=== PATIENT | female | born 1955 | race Caucasian/White ===

== ENCOUNTER 2017-01-29 12:15 | Emergency (ER) | payer OTHER ==
[2017-01-29 12:22] VITALS: TEMP 98.1
--- NOTE | 2017-01-29 12:31 | CPEKG ---
Heart Rate: 48 RR Interval: 1250 P-R Interval: 176 QRSD Interval: 96 QT Interval: 476 QTC Interval: 426 P [place]: 53 QRS [place]: 79 T Wave [place]: 48 EKG Severity - OTHERWISE NORMAL ECG - EKG Impression: SINUS BRADYCARDIA Electronically Signed By: Gloria Paul 29-Jan-2017 14:59:17
[2017-01-29 12:54] LABS: % IMMATURE GRANULYOCYTES 0.3 % (0.0-1.1); ABSOLUTE IMMATURE GRANULOCYTES 0.02 10^3/uL (0.00-0.10); ADD DIFF? NO; ADD MORPH? NO; ADD SCAN? NO; ATYPICAL LYMPHOCYTE FLAG 10 (0-99); FRAGMENT RBC FLAG 0 (0-99); HEMATOCRIT 40.3 % (38.0-47.0); HEMOGLOBIN 13.5 g/dL (12.6-16.3); LEFT SHIFT FLG 0 (0-99); LIPEMIA HEMOLYSIS FLAG 80 (0-99); MEAN CELL HEMOGLOBIN CONCENTR. 33.5 g/dL (32.4-36.7); MEAN CELL VOLUME 95.5 fL (81.5-99.8); MEAN PLATELET VOLUME 9.5 fL (8.7-11.7); PLATELET CLUMPS FLAG 0 (0-99); PLATELET COUNT 243 10^3/uL (150-400); RED BLOOD CELL COUNT 4.22 10^6/uL (4.18-5.33); RED CELL DISTRIBUTION WIDTH 12.7 % (11.5-15.2)
--- NOTE | 2017-01-29 12:54 | EDPHY ---
H & P Time Seen by Provider: 01/29/17 12:42 HPI/ROS: CHIEF COMPLAINT: Palpitations HISTORY OF PRESENT ILLNESS: The patient is a 61-year-old female who presents with palpitations. Onset of palpitations at 0400 this morning. No associated sx and no known allev/aggrev factors. The patient has experienced palpitations previously, but the palpitations usually resolve after a several minutes. About 1 month ago the patient was experiencing increased fatigue with exertion. She saw Dr. Duckworth and had an ECHO done (reportedly normal, per pt). No SOB or c/p today. REVIEW OF SYSTEMS: A comprehensive 10 point review of systems is otherwise negative aside from elements mentioned in the history of present illness. Past Medical/Surgical History: Denies. Social History: Nonsmoker. No alcohol. Very active. Smoking Status: Never smoked Physical Exam: General Appearance: Alert, pleasant Eyes: Pupils equal and round, no conjunctival pallor or injection ENT, Mouth: Mucous membranes moist Neck: Normal inspection Respiratory: Lungs are clear to auscultation Cardiovascular: Regular rate and rhythm, no murmur, occasional irregular beat Gastrointestinal: Abdomen is soft and non-tender Neurological: A&O, nonfocal, normal gait Skin: Warm and dry, no rash Extremities: Nontender, no pedal edema Psychiatric: Mood and affect normal Constitutional: Initial Vital Signs Temperature (C) 36.7 C 01/29/17 12:19 Heart Rate 54 L 01/29/17 12:19 Respiratory Rate 18 01/29/17 12:19 Blood Pressure 125/70 H 01/29/17 12:19 O2 Sat (%) 99 01/29/17 12:19 O2 Delivery Mode Room Air Allergies/Adverse Reactions: No Known Allergies Allergy (Verified 01/29/17 12:19) Home Medications: Medication Instructions Recorded CETIRIZINE HCL [Zyrtec] 5 mg PO 08/12/10 Estrogen Patch 08/12/10 MONTEL[place]AST SODIUM [Singulair] 10 mg PO 08/12/10 Progesterone,Micronized 100 mg PO 08/12/10 [Prometrium] Medical Decision Making - Diagnostics EKG Interpretation: EKG interpreted by me: sinus bradycardia, 48, no ST/T changes. ED Course/Re-evaluation: The patient presents with palpitations. telemetry monitor reveals NSR with PVC' s. No serious dysrhythmia. Electrolytes are within normal range. Plan for 1L of fluid before discharging her home. Differential Diagnosis: includes though not limited to ACS, PE, Afib, SVT, thyrotoxicosis - Data Points Laboratory Results: Laboratory Results 01/29/17 12:45 01/29/17 12:45 Medications Given: Discontinued Medications Sodium Chloride (Ns) 1,000 mls @ 0 mls/hr IV ONCE ONE PRN Reason: Wide Open Stop: 01/29/17 13:15 Last Admin: 01/29/17 13:15 Dose: 1,000 mls Departure - Departure Disposition: Home, Routine, Self-Care Clinical Impression: PVC (premature ventricular contraction) Condition: Good Instructions: Premature Ventricular Contractions (ED) Additional Instructions: Return to the emergency department with new or worsening symptoms. Referrals: Alexia Nowak MD [Primary Care Provider] - As per Instructions Report Scribed for: Gloria Paul Report Scribed by: Madelyn Macario Date of Report: 01/29/17 Time of Report: 12:51 Physician Review and Approval Statement: 01/29/17 12:51 Portions of this note were transcribed by a medical practitioners. I personally performed the history, physical exam, and medical decision-making; and confirmed the accuracy of the information in the transcribed note.
[2017-01-29 13:07] LABS: ANION GAP 10 mEq/L (8-16); CALCIUM 9.3 mg/dL (8.5-10.4); CARBON DIOXIDE 26 mEq/l (22-31); CHLORIDE 105 mEq/L (97-110); CREATININE 0.7 mg/dL (0.6-1.0); GLOMERULAR FILTRATION RATE > 60; GLUCOSE 87 mg/dL (70-100); POTASSIUM 4.1 mEq/L (3.5-5.2); SODIUM 141 mEq/L (134-144)
[2017-01-29] MEDS ORDERED: NS 1,000 ML IV ONE (13:14)
[2017-01-29 14:06] VITALS: BP 119/65; PULSE 50; RESP 16; O2SAT 96
== END 2017-01-29 14:02 | disposition home or self-care (01) ==
DX: I49.3 Ventricular premature depolarization (principal)

== ENCOUNTER → 2018-02-28 | Outpatient (CLI) | payer OTHER | LOC: FIMAGING 13:37 | PROVIDERS: ATTEND Obstetrics & Gynecology Gynecology | DX: Z12.31 Encounter for screening mammogram for malignant neoplasm of breast (principal); Z13.820 Encounter for screening for osteoporosis; M85.89 Other specified disorders of bone density and structure, multiple sites; Z78.0 Asymptomatic menopausal state; Z79.890 Hormone replacement therapy ==